=== PATIENT | male | born 1960 | race Caucasian/White ===

== ENCOUNTER → 2016-03-30 | Outpatient (CLI) | payer OTHER ==
--- NOTE | 2016-03-30 08:15 | CT ---
EXAMINATION TYPE: CT brain wo con DATE OF EXAM: 03/30/2016 7:57 AM COMPARISON: NONE HISTORY: Dizziness and syncope CT DLP: 1213 mGycm Automated exposure control for dose reduction was used. FINDINGS: There is no acute intracranial hemorrhage, mass effect, or midline shift identified. The ventricles and sulci are within normal limits in size. The globes are intact and the visualized sinuses are isidoro ar. IMPRESSION: No acute intracranial hemorrhage, mass effect, or midline shift is seen. Symptoms persist consider MR I.
== END | disposition home or self-care (01) ==
LOC: RADCTMAIN 07:20
PROVIDERS: ATTEND Physician Assistant Medical
DX: R42 Dizziness and giddiness (principal); R55 Syncope and collapse
CPT/HCPCS: 70450

== ENCOUNTER 2016-04-21 12:26 | Inpatient (IN) | payer OTHER ==
[2016-04-21] MEDS ORDERED: HEPARIN SODIUM,PORCINE 5,000 UNIT/ML 1 ML VIAL IV ONE (12:57)
[2016-04-21] MEDS ORDERED: SODIUM CHLORIDE 0.9% 1,000 ML IV STA (12:57)
[2016-04-21] MEDS ORDERED: DILTIAZEM 125 MG in SODIUM CHLORIDE 0.9% 100 ML IV ONE (12:57)
[2016-04-21] MEDS ORDERED: HEPARIN SODIUM,PORCINE 5,000 UNIT/ML 1 ML VIAL IV PRN ×2 (12:57→14:13)
[2016-04-21] MEDS ORDERED: MORPHINE SULFATE 4 MG/ML SYRINGE IV PRN (12:57)
[2016-04-21] MEDS ORDERED: NITROGLYCERIN SL TABS 0.4 MG TAB SUBLINGUAL PRN (12:57)
[2016-04-21] MEDS ORDERED: DILTIAZEM 5 MG/ML 5 ML VIAL IVP STA (12:57)
[2016-04-21] MEDS ORDERED: SODIUM CHLORIDE 0.9% 500 ML IV STA (12:57)
--- NOTE | 2016-04-21 12:57 | ED ---
General Adult HPI - General Chief complaint: Chest Pain Stated complaint: Abnormal ECG Time Seen by Provider: 04/21/16 12:35 Source: patient, RN notes reviewed, old records reviewed Mode of arrival: wheelchair Limitations: no limitations - History of Present Illness Initial comments: This is a 55-year-old male to the ER for evaluation. Patient coming in for superfast sorry. Patient's states his heart is going superfast, he said this issue for about 2 years. He was never able to find a diagnosis. Patient incontinent in today by family family care provider patient does have high blood pressure and high cholesterol. Patient without chest pain, mild shortness of breath. - Related Data Home Medications Medication Instructions Recorded Confirmed Atorvastatin [Lipitor] 40 mg PO DAILY 09/22/15 09/24/15 Aspirin EC [Ecotrin Low Dose] 81 mg PO DAILY 04/21/16 04/21/16 Fluticasone/Salmeterol [Advair 1 puff INHALATION RT-BID 04/21/16 04/21/16 250-50 Diskus] Metoprolol Succinate [Toprol XL] 25 mg PO DAILY 04/21/16 04/21/16 Allergies Allergy/AdvReac Type Severity Reaction Status Date / Time No Known Allergies Allergy Verified 04/21/16 12:53 Review of Systems ROS Statement: Those systems with pertinent positive or pertinent negative responses have been documented in the HPI. ROS Other: All systems not noted in ROS Statement are negative. Past Medical History Past Medical History: Hyperlipidemia, Hypertension, Sleep Apnea/CPAP/BIPAP Additional Past Medical History / Comment(s): HYPOGLYCEMIA. NO CPAP USED. History of Any Multi-Drug Resistant Organisms: None Reported Additional Past Surgical History / Comment(s): VASECTOMY. Past Anesthesia/Blood Transfusion Reactions: No Reported Reaction Past Psychological History: No Psychological Hx Reported Smoking Status: Former smoker Past Alcohol Use History: None Reported Additional Past Alcohol Use History / Comment(s): SMOKED 20 YEARS, 1 1/2 PPD, QUIT 2005 EST. NO ALCOHOL SINCE 01/2015. Past Drug Use History: None Reported Additional Drug Use History / Comment(s): USE 2X PER WEEK EST - Past Family History Mother Family Medical History: Cancer General Exam Limitations: no limitations General appearance: alert, in no apparent distress, anxious Head exam: Present: atraumatic, normocephalic, normal inspection Eye exam: Present: normal appearance, PERRL, EOMI. Absent: scleral icterus, conjunctival injection, periorbital swelling ENT exam: Present: normal exam, mucous membranes moist Neck exam: Present: normal inspection. Absent: tenderness, meningismus, lymphadenopathy Respiratory exam: Present: normal lung sounds bilaterally. Absent: respiratory distress, wheezes, rales, rhonchi, stridor Cardiovascular Exam: Present: tachycardia, irregular rhythm, normal heart sounds. Absent: systolic murmur, diastolic murmur, rubs, gallop, clicks GI/Abdominal exam: Present: soft, normal bowel sounds. Absent: distended, tenderness, guarding, rebound, rigid Extremities exam: Present: normal inspection, full ROM, normal capillary refill. Absent: tenderness, pedal edema, joint swelling, calf tenderness Back exam: Present: normal inspection Neurological exam: Present: alert, oriented X3, CN II-XII intact Psychiatric exam: Present: normal affect, normal mood Skin exam: Present: warm, dry, intact, normal color. Absent: rash Course Vital Signs 04/21/16 12:32 Temperature 98.5 F Pulse Rate 95 Respiratory 16 Rate Blood Pressure 118/69 O2 Sat by Pulse 95 Oximetry EKG Findings - EKG Comments: EKG Findings:: EKG shows A. fib with RVR rate 140, QRS 80, QTC 464 Medical Decision Making - Medical Decision Making 55 mouth ER for evaluation of elevated heart rate. Patient suffered from A. fib with RVR, we'll admit on anticoagulation for cardiac observation and treatment as well as rate control - Radiology Data Radiology results: report reviewed (CXR is negative for acute disease), image reviewed Critical Care Time Critical Care Time: Yes Total Critical Care Time: 31 Disposition Clinical Impression: Atrial fibrillation with RVR Disposition: ADMITTED IP TO THIS HOSP Condition: Fair Referrals: Rakesh Knox DO [Primary Care Provider] - 1-2 days
[2016-04-21] MEDS ORDERED: HEPARIN SODIUM,PORCINE/D5W PMX 25,000 UNIT in DEXTROSE/WATER 1 500ML.BAG IV SCH ×2 (13:00→14:30)
[2016-04-21 13:28] LABS: Basophils % (A) 0 %; CH 31.1; CHCM 35.4; Eosinophils # (A) 0.1 k/uL (0-0.7); Eosinophils % (A) 2 %; HCT 46.2 % (39.0-53.0); HDW 2.86; HGB 15.9 gm/dL (13.0-17.5); Luc # (Auto) 0.13; Luc % (Auto) 2; Lymphocytes # (A) 1.6 k/uL (1.0-4.8); Lymphocytes % (A) 25 %; MCH 30.3 pg (25.0-35.0); MCHC 34.5 g/dL (31.0-37.0); Mean Platelet Volume 7.7; Monocytes # (A) 0.4 k/uL (0-1.0); Monocytes % (A) 6 %; Neutrophils # (A) 4.2 k/uL (1.3-7.7); Neutrophils % (A) 65 %; RBC 5.25 m/uL (4.30-5.90); RDW 12.7 % (11.5-15.5); WBC 6.4 k/uL (3.8-10.6); WBC (Perox) 6.37
[2016-04-21 13:38] LABS: ALT 72 U/L (21-72); AST 20 U/L (17-59); Alkaline Phosphatase 73 U/L (38-126); Anion Gap 10 mmol/L; Blood Urea Nitrogen 17 mg/dL (9-20); Calcium 9.7 mg/dL (8.4-10.2); Carbon Dioxide 24 mmol/L (22-30); Chloride 108 mmol/L (98-107); Glucose 87 mg/dL (74-99); Non-African American GFR(MDRD) >60 (>60 ml/min/1.73 sqM); Phosphorous 3.4 mg/dL (2.5-4.5); Potassium 4.5 mmol/L (3.5-5.1); Sodium 142 mmol/L (137-145); Total Bilirubin 0.6 mg/dL (0.2-1.3); Total Protein 6.8 g/dL (6.3-8.2)
[2016-04-21 13:39] LABS: INR 1.1 (<1.1); Partial Thromboplastin Time 23.4 sec (22.0-30.0); Prothrombin Time 10.7 sec (9.0-12.0)
[2016-04-21 13:52] LABS: Creatine Kinase 62 U/L (55-170)
[2016-04-21 14:05] LABS: Creatine Kinase MB 0.5 ng/mL (0.0-2.4); Troponin I <0.012 ng/mL (0.000-0.034)
[2016-04-21] MEDS ORDERED: HEPARIN SODIUM,PORCINE 5,000 UNIT/ML 1 ML VIAL IV STA (14:13)
[2016-04-21 20:10] LABS: Creatine Kinase 52 U/L (55-170)
[2016-04-21 20:24] LABS: Creatine Kinase MB 0.4 ng/mL (0.0-2.4); Troponin I <0.012 ng/mL (0.000-0.034)
[2016-04-21] MEDS: SODIUM CHLORIDE 0.9% 1,000 ML IV SCH (21:00)
[2016-04-22 02:12] LABS: Creatine Kinase 47 U/L (55-170)
[2016-04-22 02:25] LABS: Creatine Kinase MB 0.4 ng/mL (0.0-2.4); Troponin I <0.012 ng/mL (0.000-0.034)
[2016-04-22] MEDS: SODIUM CHLORIDE 0.9% 1,000 ML IV SCH ×2 (06:20→19:36)
[2016-04-22 06:59] LABS: Basophils % (A) 1 %; CH 30.8; CHCM 34.5; Eosinophils # (A) 0.2 k/uL (0-0.7); Eosinophils % (A) 3 %; HCT 45.2 % (39.0-53.0); HDW 2.89; HGB 14.8 gm/dL (13.0-17.5); Luc # (Auto) 0.14; Luc % (Auto) 3; Lymphocytes # (A) 2.2 k/uL (1.0-4.8); Lymphocytes % (A) 38 %; MCH 29.3 pg (25.0-35.0); MCHC 32.7 g/dL (31.0-37.0); MCV 89.7 fL (80.0-100.0); Mean Platelet Volume 7.4; Monocytes # (A) 0.2 k/uL (0-1.0); Monocytes % (A) 4 %; Neutrophils % (A) 52 %; RBC 5.04 m/uL (4.30-5.90); WBC 5.8 k/uL (3.8-10.6); WBC (Perox) 5.99
[2016-04-22 07:15] LABS: Cholesterol 149 mg/dL (<200); HDL Cholesterol 44 mg/dL (40-60); Triglycerides 200 mg/dL (<150)
[2016-04-22] MEDS ORDERED: ASPIRIN 325 MG TAB PO SCH (09:00)
[2016-04-22] MEDS: METOPROLOL SUCCINATE (ER) 25 MG TAB.ER.24H PO SCH (10:33)
[2016-04-22] MEDS: PROPAFENONE 150 MG TAB PO SCH ×3 (10:34→22:15)
[2016-04-22] MEDS: APIXABAN 5 MG TAB PO SCH ×2 (10:34→19:49)
--- NOTE | 2016-04-22 11:34 | CONS ---
DATE OF CONSULTATION: Bryant is a 55-year-old gentleman with history of hypertension and dyslipidemia, comes to hospital with recurrent episodes of palpitations. The patient has been having on and off episodes of palpitations for the last 2 years, was seen by a snack bar cook in the past and workup including Holter, echo and stress tests were unremarkable. Yesterday he was at his primary care physician's office with symptoms of sustained palpitations, was found to be in A. fib, sent to the emergency room and got admitted. He denies chest pain, shortness of breath, paroxysmal nocturnal dyspnea or orthopnea. There is no history of CVA. There is no prior history of coronary artery disease or congestive heart failure. The patient was treated with intravenous heparin, Cardizem; still remains in A. fib with controlled ventricular rate this morning. Past medical history is significant for hypertension and dyslipidemia. Current medications include Toprol XL 25 q. daily, Lipitor 40 q. daily, aspirin and Advair. ALLERGIES: There are no known drug allergies. Family history is negative for premature coronary artery disease. SOCIAL HISTORY: Negative for smoking, EtOH abuse, or drug abuse. REVIEW OF SYSTEMS: HEENT: Unremarkable. CARDIAC: As described above. RESPIRATORY: Negative. GI: Negative. GENITOURINARY: Negative. ALLERGY/IMMUNOLOGY: Negative. SKIN: Negative. MUSCULOSKELETAL: Negative. ENDOCRINE: Negative. DERM: Negative. CONSTITUTIONAL: Negative. ONCOLOGICAL: Negative. HEMATOLOGICAL: Negative. The rest of the system review is not relevant. On exam, comfortable at rest, afebrile. Heart rate is in the 80s. Blood pressure is 114/72, respirations 18, O2 sat is 96% on room air. There is no jugular venous distention. Carotid upstroke is normal. There is no bruit. Chest is clear to auscultation and percussion. Heart exam reveals first and second heart sounds, irregular rhythm. No murmur. Abdomen is soft, nontender. Exam of the extremities did not reveal edema. Peripheral pulses are felt. Labs show a hemoglobin of 14.8, platelet count is 203. Potassium is 4.5. Creatinine is 0.8. Three sets of troponins are negative. Lipid profile shows an LDL cholesterol of 65. EKG shows atrial fibrillation with rhythm strip shows A. fib with controlled ventricular rate. I will obtain a TSH. ASSESSMENT: 1. Persistent atrial fibrillation. 2. Hypertension. 3. Dyslipidemia. PLAN: Patient's symptomatology suggests that he had been having on and off episodes of atrial fibrillation for quite some time. I am going to obtain a 2-D echo on him to document his LV function, start him on Rythmol 150 q.8. Stop the IV heparin and start him on Eliquis 5 mg b.i.d. The plan at this stage is if he does not convert to sinus rhythm, I will anticoagulate him, continue the rhythm suppressive therapy and the beta aye and consider JOSE M cardioversion after 3 weeks of anticoagulation. Thank you for allowing us to participate in the care of this pleasant gentleman.
--- NOTE | 2016-04-22 11:57 | ECHOF ---
Referral Reason:lv function MEASUREMENTS -------- HEIGHT: 182.9 cm WEIGHT: 123.8 kg BP: IVSd: 1.1 cm (0.6 - 1.1) LVIDd: 5.3 cm (3.9 - 5.3) LVPWd: 1.2 cm (0.6 - 1.1) IVSs: 1.4 cm LVIDs: 3.3 cm LVPWs: 1.4 cm Ao Diam: 3.6 cm (2.0 - 3.7) AV Cusp: 2.4 cm (1.5 - 2.6) MV EXCURSION: 15.618 mm (> 18.000) MV EF SLOPE: 134 mm/s (70 - 150) EPSS: 1.6 cm RAP: 5.00 mmHg RVSP: 10.82 mmHg FINDINGS -------- Atrial fibrillation. This was a technically good study. There is mild concentric left ventricular hypertrophy. Overall left ventricular systolic function is mild-moderately impaired with, an EF between 40 - 45 %. The right ventricle is normal in size and function. The left atrium is normal in size. The right atrium is normal in size. The aortic valve is trileaflet, and appears structurally normal. No aortic stenosis or regurgitation. Mild mitral regurgitation is present. Mild tricuspid regurgitation present. The right ventricular systolic pressure, as measured by Doppler, is 10.82mmHg. Pulmonic valve appears structurally normal. The aortic root size is normal. The pericardium is normal. CONCLUSIONS -------- 1. Atrial fibrillation. 2. Mild tricuspid regurgitation present. 3. The right ventricular systolic pressure, as measured by Doppler, is 10.82mmHg. 4. Pulmonic valve appears structurally normal. 5. The aortic root size is normal. 6. The pericardium is normal. 7. This was a technically good study. 8. There is mild concentric left ventricular hypertrophy. 9. Overall left ventricular systolic function is mild-moderately impaired with, an EF between 40 - 45 %. 10. The right ventricle is normal in size and function. 11. The left atrium is normal in size. 12. The right atrium is normal in size. 13. The aortic valve is trileaflet, and appears structurally normal. No aortic stenosis or regurgitation. 14. Mild mitral regurgitation is present. DATA PROCESSING MANAGER: Shayy Hope [facility]
--- NOTE | 2016-04-22 19:37 | HP ---
DATE OF ADMISSION: 04/21/2016 CHIEF COMPLAINT: Palpitations. HISTORY OF PRESENT ILLNESS: Mr. Kolb is a 55-year-old gentleman with a past medical history of hypertension, hyperlipidemia, coming into the hospital with a chief complaint of palpitations. The patient states that he has recurrent episodes of palpitations on and off for the past couple of years and was also seen by a digital community manager and now being worked up with a Holter monitor and a stress test that had been within normal limits. Patient did visit his PCPs office yesterday and was found to have palpitations and had an EKG done, which was showing A. fib and so sent to do to the emergency room for further evaluation. Patient denies having any chest pain, any difficulty in breathing. No swelling of his lower extremities. Patient denies having any history of smoking. No family history of coronary artery disease. The patient was treated with IV heparin and started on Cardizem drip, after which his rate controlled was obtained and later the patient has pain and the patient has been changed to Eliquis and started on metoprolol this morning. Patient states that he does not have any palpitations currently and states that he is back to his baseline. REVIEW OF SYSTEMS: CONSTITUTIONAL: Denies any fever, chills, or rigors. RESPIRATORY: No cough. No difficulty in breathing. CARDIAC: As per HPI. GI: No abdominal pain, nausea, vomiting, or diarrhea. : No dysuria or hematuria. HEMATOLOGICAL: No history of ( ) infections. ENDOCRINE: No history of hypothyroidism. PAST PSYCHIATRIC HISTORY: None. MUSCULOSKELETAL: None. All 13 review of systems are done and negative except for the ones mentioned in HPI. Past medical history is significant for hypertension and hyperlipidemia. ALLERGIES: No known drug allergies. Patient's home medications: 1. Lipitor 40 mg p.o. daily. 2. Metoprolol 25 mg p.o. daily. 3. Advair 250/50 Diskus 1 puff b.i.d. 4. Aspirin 81 mg p.o. daily. PAST SURGICAL HISTORY: Colonoscopy, vasectomy. Smoking history: He smoked for 20 years and quit in 2001. Occasional marijuana use. FAMILY HISTORY: History of family history of mother had bone cancer. Patient's vitals: Blood pressure at 114/72, heart rate 87, respiratory 20, temperature 96.7, saturating at 96% on room air. GENERAL EXAMINATION: Obese male lying in bed, appears to be no acute distress. HEAD: Atraumatic, normocephalic. EYES: Pupils, round, and reactive to light. NECK: No JVD. No thyromegaly. CARDIOVASCULAR: Irregularly irregular heart beat. LUNGS: Bilateral breath sounds are positive. No wheeze or crackles. ABDOMEN: Soft, nontender. Bowel sounds are positive. EXTREMITIES: No edema. No cyanosis, no clubbing. Peripheral pulses are felt. MACHINE SILVER STRIPPER: Alert, awake and oriented times three. No focal neurological deficits. PSYCHIATRIC: Appropriate mood and affect. Patient's labs: White count of 5.8, hemoglobin 14.8, platelets of 203, sodium 142, potassium 4.5, chloride 108, bicarb 24, BUN 17, creatinine 0.80. Troponin less than 0.012 x 3. ASSESSMENT AND PLAN: 1. Atrial fibrillation persistent. 2. Hypertension. 3. Hyperlipidemia. 4. Sleep apnea on CPAP machine. PLAN: The patient was initially started on IV heparin and Cardizem drip. His rate is under better control. He changed to Eliquis for anticoagulation and metoprolol for heart rate control. Cardiology on board and following the patient closely. Further recommendations to follow depending on the progress of the patient.
[2016-04-23] MEDS: METOPROLOL SUCCINATE (ER) 25 MG TAB.ER.24H PO SCH (06:17)
[2016-04-23 06:37] LABS: Basophils % (A) 1 %; CHCM 34.7; Eosinophils # (A) 0.1 k/uL (0-0.7); Eosinophils % (A) 2 %; HCT 47.6 % (39.0-53.0); HDW 2.84; HGB 15.9 gm/dL (13.0-17.5); Luc # (Auto) 0.16; Luc % (Auto) 3; Lymphocytes % (A) 32 %; MCHC 33.4 g/dL (31.0-37.0); MCV 89.8 fL (80.0-100.0); Mean Platelet Volume 7.7; Monocytes # (A) 0.4 k/uL (0-1.0); Monocytes % (A) 6 %; Neutrophils # (A) 3.6 k/uL (1.3-7.7); Neutrophils % (A) 57 %; RBC 5.29 m/uL (4.30-5.90); RDW 12.9 % (11.5-15.5); WBC 6.3 k/uL (3.8-10.6); WBC (Perox) 6.41
[2016-04-23] MEDS: PROPAFENONE 150 MG TAB PO SCH (07:40)
[2016-04-23] MEDS: APIXABAN 5 MG TAB PO SCH ×2 (07:40→20:46)
[2016-04-23] MEDS: ASPIRIN 81 MG CHEW PO SCH (07:40)
--- NOTE | 2016-04-23 10:10 | PN ---
Bryant is a 55-year-old gentleman who is admitted to hospital with new onset atrial fibrillation, remains in A. fib with poorly controlled ventricular rate. We tried him on Rythmol yesterday but still has not converted to sinus rhythm. The echocardiogram showed normal LV function and the plan at this stage is to start him on amiodarone 400 mg b.i.d. and increase the dose of Toprol-XL to 50 mg daily and continue the Eliquis for anticoagulation. I am hoping that it would be able to discharge him home tomorrow morning and bring him back for a JOSE M, cardioversion down the road. On exam he is comfortable at rest. Heart rate is in the 120s per minute, blood pressure is 130/60, respirations 18. There is no jugular venous distention. Chest exam reveals good air entry bilaterally. Heart exam reveals first and second heart sounds. No gallop. No murmur, irregular rhythm. ABDOMEN: Soft. Exam of the extremities did not reveal any edema. Peripheral pulses are palpable. ASSESSMENT: Atrial fibrillation with rapid ventricular rate. PLAN: Patient will be on amiodarone and Eliquis. Echo findings have been reviewed.
[2016-04-23] MEDS ORDERED: METOPROLOL SUCCINATE (ER) 50 MG TAB.ER.24H PO STA (10:35)
[2016-04-23] MEDS: AMIODARONE 200 MG TAB PO SCH ×2 (12:45→20:46)
[2016-04-23] MEDS ORDERED: AMIODARONE 200 MG TAB PO SCH (21:00)
[2016-04-24 05:41] LABS: Basophils # (A) 0.1 k/uL (0-0.2); Basophils % (A) 2 %; CHCM 34.8; Eosinophils # (A) 0.1 k/uL (0-0.7); Eosinophils % (A) 2 %; HCT 48.6 % (39.0-53.0); HDW 2.89; HGB 16.2 gm/dL (13.0-17.5); Luc # (Auto) 0.12; Luc % (Auto) 2; Lymphocytes # (A) 2.1 k/uL (1.0-4.8); Lymphocytes % (A) 30 %; MCH 29.7 pg (25.0-35.0); MCHC 33.2 g/dL (31.0-37.0); MCV 89.4 fL (80.0-100.0); Mean Platelet Volume 8.3; Monocytes # (A) 0.4 k/uL (0-1.0); Monocytes % (A) 6 %; Neutrophils # (A) 4.1 k/uL (1.3-7.7); Neutrophils % (A) 59 %; RBC 5.44 m/uL (4.30-5.90); RDW 12.7 % (11.5-15.5); WBC 6.9 k/uL (3.8-10.6); WBC (Perox) 7.12
[2016-04-24 06:30] VITALS: TEMP 97.1
[2016-04-24] MEDS: AMIODARONE 200 MG TAB PO SCH (06:30)
[2016-04-24] MEDS: ASPIRIN 81 MG CHEW PO SCH (08:02)
[2016-04-24] MEDS: APIXABAN 5 MG TAB PO SCH (08:02)
[2016-04-24] MEDS ORDERED: METOPROLOL SUCCINATE (ER) 50 MG TAB.ER.24H PO SCH (09:00)
[2016-04-24 09:21] VITALS: RESP 18
[2016-04-24] MEDS ORDERED: DIGOXIN 250 MCG/ML 2 ML AMP IVP STA (09:32)
[2016-04-24] MEDS ORDERED: DIGOXIN 250 MCG TAB PO SCH (10:00)
--- NOTE | 2016-04-24 10:39 | PN ---
DATE OF SERVICE: 04/24/2016 A 55-year-old gentleman who is admitted to hospital with atrial fibrillation with rapid ventricular rate. The patient is being treated with amiodarone and Eliquis. His heart rates at times are better controlled but there are times when his heart rate is still elevated. I am adding Lanoxin today and if his heart rate is better controlled later today we should be able to discharge him home and arrange for an outpatient cardioversion [address] On exam, comfortable at rest, remains in A. fib with poorly controlled ventricular rate. Blood pressure is normal. There is no jugular venous distention. Carotid upstroke is normal. There is no bruit. Chest exam reveals good air entry bilaterally. Heart exam reveals first and second heart sounds, irregular rhythm. Examination of the extremities did not reveal edema. Peripheral pulses are felt. Labs show a hemoglobin of 16.2, platelet count is 197. LDL cholesterol is 65. Tropes are negative. ASSESSMENT: Atrial fibrillation with poorly controlled ventricular rate. I will continue the amiodarone, Eliquis, Toprol and digoxin. His heart rate is better controlled, we can discharge him home this afternoon and arrange outpatient follow-up through my office.
[2016-04-24 12:00] VITALS: BP 111/70; PULSE 125
--- NOTE | 2016-04-24 12:27 | PN ---
INTERVAL HISTORY: Mr. Kolb is a 55-year-old gentleman with the past medical history of hypertension, hyperlipidemia who was sent from his PCPs office due to new onset atrial fibrillation. Patient has been started on metoprolol yesterday but his heart rate was still in 130s to 140s systolic today. Amiodarone has been started by Cardiology. Patient is sitting up in the bed, appears to be in no acute distress. He does not have any complaints. REVIEW OF SYSTEMS: CONSTITUTIONAL: Denies having fevers, chills or rigors. RESPIRATORY: No cough. No difficulty in breathing. CARDIAC: Positive for palpitations, nausea, no chest pain. GI: No abdominal pain, nausea, vomiting, or diarrhea. Outpatient medications have been reviewed. On examination, patient's vital signs are temperature 96.8, heart rate between 120s to 130s, respiratory rate is 16, blood pressure 115/74, saturating at 94% on room air. GENERAL: Obese male, lying in bed, appears to be in no acute distress. HEAD: Atraumatic, normocephalic. EYES: Pupils round and reactive to light. NECK: No JVD. No thyromegaly. CARDIOVASCULAR: Irregular heart rate. LUNGS: Bilateral breath sounds are positive. No wheeze or crackles. ABDOMEN: Soft, nontender. Bowel sounds positive. EXTREMITIES: No edema. No cyanosis, no clubbing. Peripheral pulses are felt. TRUSS DESIGNER: Alert, awake, oriented x3. No focal neurological deficits. PSYCHIATRIC: Appropriate mood and affect. Patient's labs: White count of 6.3, hemoglobin is 15.9, platelets of 199. ASSESSMENT AND PLAN: 1. Atrial fibrillation with rapid ventricular rate, persistent. 2. Hypertension. 3. Hyperlipidemia. 4. Sleep apnea on CPAP. PLAN: Patient's heart rate is still in 120s and 130s, so he has been started on amiodarone today and his dose of metoprolol has been increased. Will continue to monitor the patient for better rate control. Cardiology on board, following the patient. Further recommendations to follow depending on the progress of the patient.
--- NOTE | 2016-04-25 17:49 | DS ---
DATE OF ADMISSION: 04/21/2016 DATE OF DISCHARGE: 04/24/2016 HOSPITAL COURSE: Mr. Kolb is a 55-year-old gentleman with a past medical history of hypertension, hyperlipidemia who was sent in from his PCPs office due to new onset atrial fibrillation. The patient was initially started on Cardizem drip and later on changed to metoprolol after which his heart rate was still elevated and later on amiodarone was added to his regimen along with increasing dosage of metoprolol and eventually the patient's heart rate is under better control. He has been cleared by Cardiology. The patient has been started on anticoagulation. Cardiology to make arrangements for outpatient cardioversion [address]. Patient has been cleared by Independent Tr[employer]. PROCEDURES DONE DURING HIS HOSPITAL STAY: No surgeries. The patient had an echocardiogram showing ejection fraction of 40% to 45%. DISCHARGE DIAGNOSES: 1. Atrial fibrillation with rapid ventricular rate, persistent. 2. Hypertension. 3. Hyperlipidemia. 4. Sleep apnea on CPAP machine. Patient's discharge medications: 1. Atorvastatin 40 mg p.o. daily. 2. Aspirin 81 mg p.o. daily. 3. Advair 250/50 one puff b.i.d. 4. Metoprolol 25 mg p.o. daily. 5. Amiodarone 200 mg p.o. b.i.d. 6. Eliquis 5 mg p.o. b.i.d. 7. Digoxin 250 mcg p.o. daily. 8. Metoprolol XL 50 mg p.o. daily. Patient is advised to follow up with Dr. Sauer and appointment was given on 05/15/2016 at 2:15 p.m. and also with his primary care physician, Dr. Rakesh Knox in 1 to 2 days. Activity as tolerated. DIET: Cardiac diet. Patient is being discharged to home in a fair condition today.
== END 2016-04-24 14:12 | disposition home or self-care (01) | DRG 310 ==
LOC: SUPCPDRO 12:26 → EC 12:26 → 6SEL 12:57
PROVIDERS: ADMIT Hospitalist; ATTEND Hospitalist
DX: I48.1 Persistent atrial fibrillation (principal); I10 Essential (primary) hypertension; E78.5 Hyperlipidemia, unspecified; E78.00 Pure hypercholesterolemia, unspecified; F12.90 Cannabis use, unspecified, uncomplicated; G47.30 Sleep apnea, unspecified; Z79.82 Long term (current) use of aspirin; Z87.891 Personal history of nicotine dependence; Z79.899 Other long term (current) drug therapy
CPT/HCPCS: 36415; 80053; 80061; 82550; 82553; 83735; 84100; 84443; 84484; 85025; 85610; 85730; 93005; 93306; 94760; 96361; 96365; 96368; 96376; 99291

== ENCOUNTER → 2016-04-21 | Outpatient (CLI) | payer OTHER ==
--- NOTE | 2016-04-24 08:23 | XR ---
EXAMINATION TYPE: XR chest 2V DATE OF EXAM: 04/21/2016 10:35 AM COMPARISON: NONE HISTORY: Shortness of breath FINDINGS: The lungs are clear and there is no pneumothorax, pleural effusion, or focal pneumonia. IMPRESSION: 1. No acute process.
== END | disposition home or self-care (01) ==
LOC: RADXRYALE 10:19
PROVIDERS: ATTEND Physician Assistant Medical
DX: R06.02 Shortness of breath (principal)
CPT/HCPCS: 71020

== ENCOUNTER 2016-05-24 06:00 | Day surgery (SDC) | payer OTHER ==
[2016-05-22 09:36] VITALS: BMI 37.6
[~2016-05-24 06:00] MED LIST: LACTATED RINGERS 1,000 ML IV SCH; SODIUM CHLORIDE 0.9% 1,000 ML IV SCH
[2016-05-24 06:37] VITALS: TEMP 97.9
[2016-05-24 06:55] LABS: Anion Gap 12 mmol/L; Blood Urea Nitrogen 14 mg/dL (9-20); Calcium 9.3 mg/dL (8.4-10.2); Carbon Dioxide 24 mmol/L (22-30); Chloride 107 mmol/L (98-107); Glucose 123 mg/dL (74-99); Non-African American GFR(MDRD) >60 (>60 ml/min/1.73 sqM); Potassium 4.2 mmol/L (3.5-5.1); Sodium 143 mmol/L (137-145)
[2016-05-24] MEDS ORDERED: MIDAZOLAM 2 MG/2 ML VIAL ONE (07:14)
[2016-05-24] MEDS ORDERED: LIDOCAINE 1% INJ 10MG/ML (20 ML MDV) ONE (07:14)
[2016-05-24] MEDS ORDERED: fentaNYL (PF) 50 MCG/ML 2 ML AMP ONE (07:14)
[2016-05-24] MEDS ORDERED: PROPOFOL 10 MG/ML 20 ML VIAL IV ONE (07:14)
[2016-05-24] MEDS ORDERED: SODIUM CHLORIDE 0.9% 1,000 ML IV SCH (07:45)
--- NOTE | 2016-05-24 07:52 | ECHOT ---
DATE OF SERVICE: INDICATION: Atrial fibrillation flutter. PROCEDURE NOTE: After obtaining informed consent, transesophageal echocardiogram was performed in the left lateral position using an Omniplane probe. Local and IV sedation were obtained by the american history teacher. Patient tolerated the procedure well without any obvious immediate complications. FINDINGS: 1. There is no intracardiac thrombus within the left atrium, right atrium, right ventricle, left atrium or left ventricle. 2. Left ventricle has normal size and systolic function. 3. Right atrium and right ventricle appear mildly enlarged. 4. Mitral valve is anatomically normal. There is trace mitral regurgitation noted. 5. Aortic valve is free of stenosis or regurgitation. 6. There is mild tricuspid regurgitation noted. 7. Interatrial septum appears aneurysmal, but there is no evidence of [id number] shunt by agitated saline contrast study or [id number] shunt by color flow Doppler. 8. Aorta shows mild atherosclerotic changes. CONCLUSIONS: 1. No intracardiac thrombus. 2. Diffuse global hypokinesis with mild left ventricular dysfunction. 3. Trace mitral regurgitation. PLAN: Patient will undergo cardioversion.
--- NOTE | 2016-05-24 07:55 | CE ---
DATE OF SERVICE: CARDIOVERSION After obtaining informed consent, cardioversion was performed after making sure that the patient is adequately anticoagulated with Eliquis and that there is no intracardiac thrombus. Patient was anesthetized by the web marketing specialist. We shocked him once with a 250 joules shock and repeated it with a 360. He briefly converted for a few seconds into sinus, but went back into atrial fibrillation. The plan at this stage is to continue him on the amiodarone and either bring him back over the next 4 to 6 weeks' time after he has had enough amiodarone on board to make another attempt at cardioversion or send him to EP for ablation.
[2016-05-24 08:10] VITALS: RESP 16
[2016-05-24 09:21] VITALS: BP 112/63; PULSE 102
== END 2016-05-24 09:21 | disposition home or self-care (01) ==
LOC: CATHCVL 06:00
PROVIDERS: ATTEND Internal Medicine Cardiovascular Disease
DX: I48.91 Unspecified atrial fibrillation (principal); I48.3 Typical atrial flutter; I08.1 Rheumatic disorders of both mitral and tricuspid valves; I70.0 Atherosclerosis of aorta; E78.2 Mixed hyperlipidemia; I10 Essential (primary) hypertension; I42.9 Cardiomyopathy, unspecified; G47.33 Obstructive sleep apnea (adult) (pediatric); Z79.01 Long term (current) use of anticoagulants; Z79.82 Long term (current) use of aspirin; Z79.899 Other long term (current) drug therapy; Z87.891 Personal history of nicotine dependence
CPT/HCPCS: 93312; 93320; 93325; 92960; 80048; J2250; J2001; J3010; J2704

== ENCOUNTER 2016-07-03 06:15 | Day surgery (SDC) | payer OTHER ==
[2016-07-03] MEDS ORDERED: IV FLUID CONTINUATION 1,000 ML IV ONE (07:19)
[2016-07-03] MEDS ORDERED: ISOPROTERENOL 250 MCG/1.25 ML SYR IV ONE (07:19)
[2016-07-03] MEDS ORDERED: fentaNYL (PF) 50 MCG/ML 2 ML AMP ONE (07:19)
[2016-07-03] MEDS ORDERED: PROPOFOL 10 MG/ML 20 ML VIAL IV ONE (07:19)
[2016-07-03] MEDS ORDERED: MIDAZOLAM 2 MG/2 ML VIAL ONE (07:19)
[2016-07-03] MEDS ORDERED: LIDOCAINE 2% INJ 20 MG/ML SQ ONE ×2 (07:48→07:49)
[2016-07-03] MEDS ORDERED: HEPARIN SODIUM (1,000 UNIT/ML) 1,000 UNIT in SODIUM CHLORIDE 0.9% 1,000 ML IRRIGATION ONE (07:49)
[2016-07-03] MEDS ORDERED: ACETAMINOPHEN IV (For NPO) 1,000 MG in EMPTY BAG 1 BAG IVPB ONE (10:11)
[2016-07-03] MEDS ORDERED: ACETAMINOPHEN TAB 325 MG TAB PO PRN (10:11)
[2016-07-03] MEDS ORDERED: HYDROcodone/APAP 5-325MG 1 EACH TAB PO PRN (10:11)
--- NOTE | 2016-07-03 11:53 | CE ---
DATE OF SERVICE: This is a 55-year-old male patient who has a history of atrial fibrillation as well as typical atrial flutter. He is brought in for an atrial flutter ablation. Amiodarone was discontinued. He is brought in for EP study and ablation for symptomatic atrial flutter. He has already undergone electrical cardioversion twice. Patient was brought into the EP lab in a fasting state. Written informed consent was obtained prior to the procedure. The right and left groins were prepped and draped as per protocol and 1% lidocaine was used for local anesthesia. The venous sheaths were placed in the right and left femoral veins, and via these, diagnostic catheters were placed in the high right atrium, His bundle area, RV and coronary sinus. Later mapping ablation catheter was placed via a long SL4 sheath. Sinus cycle length 1154 ms, WI interval 151 ms, QRS interval 114 ms, QT 448 ms, AH interval 84 ms, HV interval 33 ms. Sinus node recovery times at 600, 500 and 400 ms were 1516, 1481 and 1636 ms. Corresponding corrected sinus node recovery times were within normal limits. No delta waves are noted. No slow pathway conduction antegrade. AV node Wenckebach block 420 ms. Atrial ERP 600/310 ms, VA Wenckebach block greater than 600 ms. Isuprel was started. AV node Wenckebach block improved to 310 ms. No-slow pathway conduction, no delta waves, atrial ERP 600/210 milliseconds. Burst stimulation was performed from the high right atrium 40 ms down to 300 ms. No SVT was induced. Isuprel was stopped. An SL4 sheath was placed. Intracardiac echocardiography was performed. No intracardiac masses were noted in the atrium. The right anterior interatrial septum was identified. LA and RA were identified. The cavotricuspid isthmus was mapped. Anatomic mapping was performed. 3-D anatomic mapping was performed. The tricuspid annulus was identified and tagged. Isthmus was tagged. There was a subeustachian pouch, which is quite prominent. Coronary sinus was tagged. RF ablation was performed in the cavotricuspid isthmus where the tricuspid isthmus down to the Eustachian ridge. Reversal technique was used to ablate within the subeustachian pouch. Following that, pacing maneuvers were performed to prove bidirectional block. Isthmus conduction time was about 161 ms in either direction. Split potential noted along the lines. RESULT: Diagnostic EP study was performed and successful radiofrequency ablation for atrial flutter was performed. PLAN: Stop amiodarone. Consider atrial fibrillation in the future since he has also had paroxysmal symptomatic atrial fibrillation. Continue anticoagulation. Stop amiodarone.
[2016-07-03 13:00] VITALS: BMI 37.6
[2016-07-03] MEDS: APIXABAN 5 MG TAB PO SCH (19:43)
[2016-07-03 20:24] VITALS: RESP 16
[2016-07-04] MEDS: APIXABAN 5 MG TAB PO SCH (08:02)
[2016-07-04] MEDS ORDERED: ATORVASTATIN 40 MG TAB PO SCH (09:00)
[2016-07-04] MEDS ORDERED: ASPIRIN 81 MG CHEW PO SCH (09:00)
[2016-07-04] MEDS ORDERED: METOPROLOL SUCCINATE (ER) 50 MG TAB.ER.24H PO SCH (09:00)
[2016-07-04 11:51] VITALS: BP 135/73; PULSE 61; TEMP 97.5
--- NOTE | 2016-07-04 12:54 | P.DS ---
Providers Attending physician: Hoang Liu Primary care physician: [facility] Course: Patient is doing well. No chest discomfort or undue shortness of breath no dizziness no lightheadedness His groins have healed well there is no hematoma Vitals are stable Blood pressure 135/73 mmHg Pulse rate in the 50s and 60s Temperature 97.5F Heart sounds are normal Breath sounds are normal Abdomen is soft nontender Extremities are warm, no edema Groins of healed well no hematoma Impression Symptomatic atrial flutter status post ablation Symptomatic atrial fibrillation awaiting ablation Plan Stop amiodarone Stop digoxin Follow Dr. Schulte in 1 week Patient Condition at Discharge: Stable Plan - Discharge Summary Discharge Medication List Atorvastatin [Lipitor] 40 mg PO DAILY 09/22/15 [History] Aspirin EC [Ecotrin Low Dose] 81 mg PO DAILY 04/21/16 [History] Apixaban [Eliquis] 5 mg PO BID #180 tab 04/24/16 [Rx] Metoprolol Succinate (ER) [Toprol Xl] 50 mg PO DAILY #90 tab 04/24/16 [Rx] Patient Instructions/Handouts: Cardiac Ablation (DC) Activity/Diet/Wound Care/Special Instructions: Post EP study - Ablation instructions 1. Keep access sites dry for 2 days. 2. No heavy lifting or straining for 2 days. 3. Avoid bending the hips repeatedly for 2 days. 4. You may go up and down stairs slowly Call if the following is noted 1. Bleeding, increasing swelling or pain at the access sites. 2. Increasing chest discomfort, especially upon taking a deep breath. 3. Increasing shortness of breath, at rest or with exertion. 4. Undue cough / phlegm 5. Difficulty or pain while swallowing. 6. Pain or change in color in the extremities. 7. Fever, chills, rigors. 8. Increasing headache or neurologic symptoms. 9. Dizziness, fainting, palpitations Discharge Disposition: HOME SELF-CARE
== END 2016-07-04 14:45 | disposition home or self-care (01) ==
LOC: CATHEP 06:15 → 3OBS 09:53 → CATHEP 07-04 14:45
PROVIDERS: ATTEND Internal Medicine Clinical Cardiac Electrophysiology
DX: I48.3 Typical atrial flutter (principal); I48.0 Paroxysmal atrial fibrillation; Z79.01 Long term (current) use of anticoagulants; E78.5 Hyperlipidemia, unspecified; Z87.891 Personal history of nicotine dependence; E66.9 Obesity, unspecified; Z68.37 Body mass index [BMI] 37.0-37.9, adult; G47.33 Obstructive sleep apnea (adult) (pediatric); Z99.89 Dependence on other enabling machines and devices; Z79.82 Long term (current) use of aspirin; Z79.899 Other long term (current) drug therapy
CPT/HCPCS: 93623; 93662; 93613; 93653; C1894; C1769; C1893; C1730 ×2; C1759; C1732; J2001; J2250; J3010; J1644; J2704

== ENCOUNTER 2016-09-21 05:56 | Day surgery (SDC) | payer OTHER ==
[2016-09-21] MEDS ORDERED: SODIUM CHLORIDE 0.9% 1,000 ML IV SCH (06:02)
[2016-09-21] MEDS ORDERED: LACTATED RINGERS 1,000 ML IV SCH (06:02)
[2016-09-21] MEDS ORDERED: SODIUM CHLORIDE 0.9% 1,000 ML IV ONE ×2 (06:45→11:00)
[2016-09-21] MEDS ORDERED: ATROPINE SULFATE 0.1 MG/ML 10ML SYRINGE ONE (07:53)
[2016-09-21] MEDS ORDERED: HYDROmorphone (PF) 1 MG/ML ONE (07:53)
[2016-09-21] MEDS ORDERED: DEXAMETHASONE SOD PHOS (MDV) 100 MG/10 ML VIAL ONE (07:53)
[2016-09-21] MEDS ORDERED: MIDAZOLAM 2 MG/2 ML VIAL ONE (07:53)
[2016-09-21] MEDS ORDERED: PROTAMINE SULFATE 10 MG/ML 5 ML VIAL IV ONE (07:53)
[2016-09-21] MEDS ORDERED: ePHEDrine 50 MG/ML 1 ML AMP ONE (07:53)
[2016-09-21] MEDS ORDERED: HEPARIN SODIUM 1,000 UN/ML (10ML VL) ONE (07:53)
[2016-09-21] MEDS ORDERED: SUCCINYLCHOLINE CHLORIDE 100 MG/5 ML SYR IV ONE (07:53)
[2016-09-21] MEDS ORDERED: fentaNYL (PF) 50 MCG/ML 2 ML AMP ONE (07:53)
[2016-09-21] MEDS ORDERED: PROPOFOL 10 MG/ML 20 ML VIAL IV ONE (07:53)
[2016-09-21] MEDS ORDERED: HEPARIN SODIUM,PORCINE 5,000 UNIT/ML 1 ML VIAL ONE (07:53)
[2016-09-21] MEDS ORDERED: LIDOCAINE 2% INJ 20 MG/ML SQ ONE (08:40)
[2016-09-21] MEDS ORDERED: IOHEXOL 350 MG/ML 100 ML BOTTLE INJ ONE (11:10)
[2016-09-21] MEDS ORDERED: ACETAMINOPHEN TAB 325 MG TAB PO PRN ×2 (11:28→11:29)
[2016-09-21] MEDS ORDERED: HYDROcodone/APAP 5-325MG 1 EACH TAB PO PRN (11:29)
--- NOTE | 2016-09-21 11:51 | P.PCN ---
Preoperative Diagnosis: Procedures performed ([facility]I - CRYO Ablation) Invasive hemodynamic monitoring while general anesthesia, right femoral arterial line for monitoring and sampling Comprehensive diagnostic EP study with attempted arrhythmia induction CS pacing and recording Drug infusion Catheter the mapping of the tachycardia (NOT 3D mapping) Intracardiac echocardiography Pulmonary vein isolation with transseptal and comprehensive EPS, 40444 Procedure details Patient was brought to the EP lab in a fasting state. Written informed consent was obtained prior to the procedure. Procedure performed under general anesthesia After initial muscle relaxant use, muscle relaxants were not given thereafter in order to assess phrenic nerve during procedure Patient prepped and draped as per protocol Full cryo-set up with standard preparation of the cryoablation tools done Femoral Venous access obtained on the right and left groins Sheaths placed Diagnostic catheters for the high right atrium, phrenic nerve stimulation and pacing, His bundle, RV and coronary sinus placed Intracardiac echo catheter placed Long sheath placed in the right atrium Left and right transseptal catheterization performed under intracardiac echo guidance Intravenous heparin with aCT above 300 Later, catheter positioning and balloon positioning under intracardiac echo Baseline measurements Sinus cycle length 1101 ms, MS interval 130 ms, QRS 103 ms and QT interval 459 ms. AH intervals 74 ms and HV interval 37 ms Comprehensive diagnostic EP study with drug infusion Atrial pacing performed from the high right atrium and the coronary sinus Sinus node recovery times at 605 100 ms were 1396 and 1991 ms AV node Wenckebach block 340 ms VA Wenckebach block 430 ms Transseptal catheterization performed RA pressure 24/13/19 LA pressure 27/16/21 Transseptal catheterization performed with standard sheath. The cryoablation sheath was then placed with an over the wire exchange without any acute complications. All 4 pulmonary veins were isolated in the following sequence: Left superior followed by left inferior followed by right superior followed by right inferior The cryo-ablation balloon was placed at the os of each vein 1.5 mL of IV dye was injected to confirm an occluded vein Goal during cryoablation was to achieve -30C in the first 30 seconds. If not the balloon was repositioned to obtain this result After completion of Cryoblation with durations from 180-240 seconds, entrance block was confirmed with the Attain circular catheter in a roving fashion around the antrum of the pulmonary veins Phrenic nerve pacing was performed from the SVC, right innominate vein area and diaphragm voltage was monitored as well as manually Left superior pulmonary vein First cryoablation Duration of cryoablation lesion 90 seconds -30C achieved at 21 seconds -40C achieved at 25 seconds Minimum temperature achieved -63 Thaw time 17 seconds Second cryoablation 180 seconds Duration of cryoablation lesion 190 seconds -30C achieved at 24 seconds -40C achieved at 35 seconds Minimum temperature achieved -58 Thaw time 16 seconds Vein isolated yes Left inferior pulmonary vein First cryoablation Duration of cryoablation lesion 180 seconds -30C achieved at 26 seconds -40C achieved at 37 seconds Minimum temperature achieved -57 Thaw time 17 seconds Second cryoablation Duration of cryoablation lesion 180 seconds -30C achieved at 23 seconds -40C achieveFirst cryoablation 35 seconds Minimum temperature achieved -55 Thaw time 16 seconds Vein isolated yes Right superior pulmonary vein, during phrenic nerve pacing First cryoablation Duration of cryoablation lesion on 120 seconds -30C achieved at 42 seconds Minimum temperature achieved -39 Thaw time 4 seconds Second cryoablation Duration of cryoablation lesion 180 seconds -30C achieved at 29 seconds -40C achieved at 53 seconds Minimum temperature achieved -52 Thaw time 15 seconds Vein isolated yes Right inferior pulmonary vein, during phrenic nerve pacing First cryoablation Duration of cryoablation lesion 180 seconds -30C achieved at 35 seconds -40C achieved at 84 seconds Minimum temperature achieved -46 Thaw time 10 seconds Vein isolated yes Second cryoablation Duration of cryoablation lesion 180 seconds -30C achieved at 25 seconds -40C achieved at 44 seconds Minimum temperature achieved -48 Thaw time 10 seconds Vein isolated yes At the end of the procedure the Achieve catheter was once again used to check for entrance block Phrenic nerve stimulation was performed to confirm diaphragmatic stimulation the end of the procedure Cine fluoroscopy was performed at the very end of the procedure to confirm movement of both diaphragms with inspiration and expiration At the end of the procedure the patient was extubated Heparin was reversed Venous sheaths were removed and hemostasis assured Result Successful pulmonary vein isolation using cryo-ablation Complete entrance block in all 4 veins confirmed exit block confirmed in the left-sided veins also No evidence for phrenic nerve injury Postoperative Diagnosis: Procedure(s) Performed: Implants: Indications for Procedure: Operative Findings: Description of Procedure:
[2016-09-21] MEDS ORDERED: ACETAMINOPHEN IV (For NPO) 1,000 MG in EMPTY BAG 1 BAG IVPB ONE (12:00)
[2016-09-21 13:37] VITALS: BMI 39.9
[2016-09-21] MEDS: APIXABAN 5 MG TAB PO SCH (20:32)
[2016-09-21] MEDS: METOPROLOL SUCCINATE (ER) 50 MG TAB.ER.24H PO SCH (20:32)
[2016-09-22 04:36] VITALS: RESP 18
[2016-09-22] MEDS: APIXABAN 5 MG TAB PO SCH (07:53)
[2016-09-22] MEDS: METOPROLOL SUCCINATE (ER) 50 MG TAB.ER.24H PO SCH (07:53)
--- NOTE | 2016-09-22 08:26 | P.DS ---
Providers Attending physician: Hoang Liu Primary care physician: [facility] Course: Patient is doing well. No chest discomfort no breathing trouble his swallowing is better today no odynophagia no dizziness lightheadedness or palpitations. On the monitor his rhythm has been normal rate twelve-lead ECG was reviewed and is within normal limits. He is afebrile 97.8F, pulse rate in the 70s, blood pressure 114/61 mmHg Heart sounds S1 and S2 normal no murmurs no gallops Breath sounds are normal No hematoma in the groins. There was a little bit of oozing last night in the right groin but this seems to be doing okay Impression paroxysmal symptomatic atrial fibrillation drug refractory status post pulmonary vein isolation using the cryo-balloon with successful isolation of the veins and the patient is stable doing well Plan discharge home by 5 PM today as long as he ablates in the hallways, as long as his groin is healing well without any bleeding and if he has no other symptoms. He will see his primary correctional case manager Dr. Schulte in about a week's time. He will continue all his current medications and most importantly will continue anticoagulation with ELIQUIS. This was discussed with the patient Patient Condition at Discharge: Stable Plan - Discharge Summary New Discharge Prescriptions: Continue RX: Atorvastatin [Lipitor] 40 mg PO DAILY RX: Aspirin EC [Ecotrin Low Dose] 81 mg PO DAILY RX: Apixaban [Eliquis] 5 mg PO BID #180 tab RX: Metoprolol Succinate (ER) [Toprol XL] 50 mg PO BID RX: Acetaminophen Tab [Tylenol] 1,000 mg PO Q6HR PRN PRN Reason: Mild To Moderate Pain Discharge Medication List RX: Atorvastatin [Lipitor] 40 mg PO DAILY 09/22/15 [History] RX: Aspirin EC [Ecotrin Low Dose] 81 mg PO DAILY 04/21/16 [History] RX: Apixaban [Eliquis] 5 mg PO BID #180 tab 04/24/16 [Rx] RX: Metoprolol Succinate (ER) [Toprol XL] 50 mg PO BID 09/15/16 [History] RX: Acetaminophen Tab [Tylenol] 1,000 mg PO Q6HR PRN 09/21/16 [History] Activity/Diet/Wound Care/Special Instructions: Post EP study - Ablation instructions 1. Keep access sites dry for 2 days. 2. No heavy lifting or straining for 2 days. 3. Avoid bending the hips repeatedly for 2 days. 4. You may go up and down stairs slowly Call if the following is noted 1. Bleeding, increasing swelling or pain at the access sites. 2. Increasing chest discomfort, especially upon taking a deep breath. 3. Increasing shortness of breath, at rest or with exertion. 4. Undue cough / phlegm 5. Difficulty or pain while swallowing. 6. Pain or change in color in the extremities. 7. Fever, chills, rigors. 8. Increasing headache or neurologic symptoms. 9. Dizziness, fainting, palpitations Follow-up with Dr. Schulte in 1 week
[2016-09-22] MEDS ORDERED: ASPIRIN 81 MG CHEW PO SCH (09:00)
[2016-09-22] MEDS ORDERED: ATORVASTATIN 40 MG TAB PO SCH (09:00)
[2016-09-22 09:22] VITALS: TEMP 97.1
[2016-09-22 12:13] VITALS: BP 118/67; PULSE 66
== END 2016-09-22 17:20 | disposition home or self-care (01) ==
LOC: CATHEP 05:56 → 6SEL 11:10 → CATHEP 09-22 17:20
PROVIDERS: ATTEND Internal Medicine Clinical Cardiac Electrophysiology
DX: I48.0 Paroxysmal atrial fibrillation (principal); I48.3 Typical atrial flutter; I10 Essential (primary) hypertension; G47.33 Obstructive sleep apnea (adult) (pediatric); Z99.89 Dependence on other enabling machines and devices; R00.2 Palpitations; E78.5 Hyperlipidemia, unspecified; Z79.01 Long term (current) use of anticoagulants; Z79.82 Long term (current) use of aspirin; Z79.899 Other long term (current) drug therapy; Z87.891 Personal history of nicotine dependence
CPT/HCPCS: 93623; 93662; 93609; 93656; 85347; C1894 ×3; C1769 ×4; C1730 ×3; C1759; C1893; C1733; C1766; J2001; Q9967; J0131

== ENCOUNTER → 2023-02-27 | Outpatient (CLI) | payer OTHER ==
--- NOTE | 2023-02-27 11:03 | XR ---
EXAM TYPE: LUMBAR SPINE X RAY SERIES COMPARISON: NONE HISTORY: Pain TECHNIQUE: 4 views are submitted. FINDINGS: Alignment is anatomic. The pedicles are intact. The transverse processes are intact. There is mult ilevel hypertrophic and degenerative changes spine with facet arthropathy. 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 IMPRESSION: 1. There is multilevel mild hypertrophic and degenerative changes spine with facet arthropathy.
--- NOTE | 2023-02-27 11:06 | XR ---
EXAMINATION TYPE: XR cervical spine comp DATE OF EXAM: 02/27/2023 COMPARISON: NONE HISTORY: Pain TECHNIQUE: Four views are submitted. FINDINGS: The odontoid is intact. There are no compression deformities. The prevertebral soft tissue structur es are within normal limits. There is retrolisthesis of posterior spondylosis C4-C5. Moderate degene rative disc disease and bilateral foraminal approach mild posterior spondylosis C3-C4 and C5-C6 mild degenerative disc disease. Mild foraminal C3-4 and C5-C6 bilaterally there is straightening cervical spine. IMPRESSION: 1. Multilevel degenerative disc disease most marked at C4-C5 with posterior spondylosis and bilateral foraminal encroachment suspected. Recommend MRI.
== END | disposition home or self-care (01) ==
LOC: RADXRYALE 10:34
PROVIDERS: ATTEND Physician Assistant Medical
DX: M51.16 Intervertebral disc disorders with radiculopathy, lumbar region (principal); M47.27 Other spondylosis with radiculopathy, lumbosacral region; M47.22 Other spondylosis with radiculopathy, cervical region; M50.121 Cervical disc disorder at C4-C5 level with radiculopathy
CPT/HCPCS: 72050; 72110

== ENCOUNTER 2023-10-30 22:18 | Observation (INO) | payer OTHER ==
[~2023-10-30 22:18] MED LIST changes: +HYDROmorphone 1 MG/ML 1 ML SYRINGE ONE; -LACTATED RINGERS 1,000 ML IV SCH; +METOCLOPRAMIDE 5 MG/ML 2 ML VIAL ONE; +MORPHINE SULFATE 4 MG/ML SYRINGE ONE; +ONDANSETRON 4 MG/2 ML VIAL ONE; +SODIUM CHLORIDE 0.9% 1,000 ML BAG ONE; -SODIUM CHLORIDE 0.9% 1,000 ML IV SCH
[2023-10-31] MEDS ORDERED: ASPIRIN 325 MG TAB ONE (05:38)
[2023-10-31] MEDS ORDERED: INSULIN ASPART (NovoLOG) 100 UNIT/ML VIAL SQ ONE (06:33)
[2023-10-31] MEDS ORDERED: ASPIRIN 81 MG ONE (09:05)
[2023-10-31] MEDS ORDERED: APIXABAN 5 MG TAB ONE (10:00)
--- NOTE | 2023-11-14 12:17 | CA ---
Stress Echo Report Bryant Kolb Age: 62 Gender: O : 1960 Exam Date: 10/31/2023 10:27 Exam Location: [place] Stress Ht (in): 71 Wt (lb): 260 Ordering Physician: Referring Physician: MOY BECKETT,, Ripening Room Hand: MAX Technologist Procedure CPT: Indication: ICD-9 Codes: Rhythm: Patient History: Chest parssure and short of breath Cardiac Medications: Medications in past 24 hours: Contrast: Definity Stress Results Protocol: Feliberto Total dose(mL): 2 Exercise Duration (min:sec): 8:[address] Depression (mm): Angina Score: Bynum Score: METS: 10.3 Resting HR: 63 Resting BP: 131 / 51 Peak HR: 153 Peak BP: 207 / 81 Max Predicted HR: 159 96 % Max Predicted HR Target HR: 135 Double Product: 98151 Stress Summary: Patient exercised on Feliberto protocol for 8 minutes 37 seconds. Patient was able to achieve 3 stages of stress test. His U 95% of maximum heart rate. He achieved 10.3 METS. There were no reported substernal chest pressure or shortness of breath. The test was terminated because of completion of protocol and maximum tolerated effort BP Response: mildly hypertensive blood pressure response Reason for Termination: Reached target heart rate or work-load Cardiac Symptoms: No Symptoms ECG Analysis Resting ECG: Normal sinus rhythm, occasional PVCs Stress ECG: No significant ST-T wave changes that are diagnostic for ischemia by ST segment analysis Arrhythmia: There were occasional monomorphic PVCs during study. There were no sustained arrhythmias Echo Analysis Resting Echo: There is normal global and segmental systolic function with noticed and regional wall motion abnormality Peak Echo Analysis: There is normal augmentation of global and segmental systolic function with no stress-induced regional wall motion abnormality MEASUREMENTS (Male/Female) Normal Values CONCLUSIONS Overall negative treadmill echo stress test Good excess tolerance for age achieving 10.3 METS Normal hemodynamic and clinical response to treadmill exercise Nonischemic ECG and echocardiographic response to treadmill exercise Dr Sai Blair (Electronically Signed) Final Date: 31 October 2023 13:22
--- NOTE | 2023-11-23 14:27 | CT ---
Patient Bryant Kolb C ID [id number] Order # CTA CHEST EXAMINATION TYPE: CT chest angio for PE DATE OF EXAM: 10/30/2023 INDICATION: Rule out dissection, back pain CT DLP: 1451.9 mGycm, Automated exposure control for dose reduction was used. CONTRAST: Patient injected with 100 mL of Isovue 370. COMPARISON: No comparison studies on downtime PACS TECHNIQUE: CT of the chest is performed on a spiral scan at 2 mm thick sections. Study is performed with intravenous contrast timed for evaluation for aortic dissection. This will limit additional por tions of the evaluation. FINDINGS: Aorta tapers normally through its visualized course. Minimal vascular calcifications at the aortic ar ch. There is a three-vessel arch. The ascending thoracic aorta and the main pulmonary artery is 3.6 c m. The pulmonary artery bifurcation is 3.4 cm. Aorta tapers to the diaphragm. No aortic dissection is evident. No mediastinal or hilar adenopathy enlarged by CT criteria is evident. Some minimal compressive atelectasis may be within the right lung. No suspicious consolidation is caro dent. Limited CT sections were through the upper abdomen. Upper abdomen appears unremarkable. IMPRESSION: 1. No suspicious changes to suggest thoracic aortic dissection or thoracic aortic aneurysm.
--- NOTE | 2023-12-05 07:06 | XR ---
Patient Bryant Kolb C ID [id number] Order # EXAMINATION TYPE: XR chest 2V DATE OF EXAM: 10/30/2023 COMPARISON: No comparison on downtime PACS INDICATION: Chest pain TECHNIQUE: Frontal and lateral views of the chest are obtained. FINDINGS: The heart size is normal. The pulmonary vasculature is normal. Minimal subsegmental atelectasis is not excluded. No suspicious focal consolidation or mass is identi fied. IMPRESSION: 1. Mild subsegmental atelectasis. Follow-up can be performed as clinically indicated
== END 2023-10-31 16:11 | disposition home or self-care (01) ==
LOC: 6NMEDSUR 22:18
PROVIDERS: ADMIT Internal Medicine; ATTEND Internal Medicine
DX: R07.89 Other chest pain (principal); E11.65 Type 2 diabetes mellitus with hyperglycemia; I48.0 Paroxysmal atrial fibrillation; E78.5 Hyperlipidemia, unspecified; G47.33 Obstructive sleep apnea (adult) (pediatric); I48.92 Unspecified atrial flutter; I10 Essential (primary) hypertension; R68.84 Jaw pain; M54.2 Cervicalgia; E66.9 Obesity, unspecified; Z68.38 Body mass index [BMI] 38.0-38.9, adult; Z79.01 Long term (current) use of anticoagulants; Z79.82 Long term (current) use of aspirin; Z79.4 Long term (current) use of insulin; Z79.899 Other long term (current) drug therapy; Z87.891 Personal history of nicotine dependence
CPT/HCPCS: 71046; 71275; 93005; 93351; 96374; 96375; 99285